=== PATIENT | female | born 1960 | race Caucasian/White ===

== ENCOUNTER 2022-11-20 04:04 | Observation (INO) ==
[2022-11-20 08:56] LABS: ABS Eosinophils 0.2 10^3/uL (0.0-0.5); ABS Lymphocytes 0.7 10^3/uL (1.0-4.8); ABS Monocytes 0.9 10^3/uL (0.0-0.9); ABS Neutrophils 6.3 10^3/uL (1.5-7.6); ABS Nucleated RBC 0.01 10^3/ul; Eosinophil % 2.2 %; Hematocrit 44.7 % (35-45); Hemoglobin 15.5 g/dL (11.5-14.3); Lymphocyte % 8.5 %; Mean Corpuscular Hemoglobin 31.4 pg (27-33); Mean Corpuscular Hgb Conc 34.7 g/dL (31-36); Mean Corpuscular Volume 90.4 fL (80-97); Mean Platelet Volume 7.9 fL (7.5-11.2); Nucleated Red Blood Cells % 0.1 /100 WBC (0.0-0.4); Platelet Count 124 10^3/uL (150-450); Red Blood Count 4.94 10^6/uL (3.63-4.92); Red Cell Distribution Width 16.6 % (12-17); White Blood Count 8.1 10^3/uL (3.8-11.8)
[2022-11-20 09:07] LABS: INR 1.59 (0.88-1.18)
[2022-11-20 09:37] LABS: ALT 36 U/L (7-52); AST 46 U/L (13-39); Albumin 3.1 g/dL (3.2-5.2); Alkaline Phosphatase 136 U/L (35-149); Anion Gap 9 mmol/L (2-16); Blood Urea Nitrogen 23 mg/dL (6-24); C Reactive Protein 10.42 mg/L (<8.01); CO2 Carbon Dioxide 23 mmol/L (22-32); Calcium 9.9 mg/dL (8.6-10.3); Chloride 89 mmol/L (101-111); Creatinine, Serum 0.86 mg/dL (0.51-0.95); Globulin 3.1 g/dL (2-4); Glucose 158 mg/dL (70-100); Lipase 111 U/L (11.0-82.0); Potassium 4.9 mmol/L (3.5-5.0); Sodium 121 mmol/L (135-145); Total Protein 6.2 g/dL (6.4-8.9); eGFR CKD-EPI 76.3 (>60)
[2022-11-20 09:40] LABS: HCG Pregnancy < 0.60 mIU/mL
[2022-11-20 14:53] LABS: LDH 229 U/L (140-271)
[2022-11-20 16:22] LABS: Body Fluid Appearance Clear; Body Fluid Color Yellow; Body Fluid Source Peritonial Fluid
[2022-11-20] MEDS ORDERED: Dextrose 50% Syringe 50 ml 25 GM/50 ML SYRINGE IV PUSH PRN (16:43)
[2022-11-20] MEDS ORDERED: cefTRIAXone 2 gm/50 mL D5W 2 GM/50 ML BAG IV SCH (16:45)
[2022-11-20 17:29] LABS: Osmolality Serum 266 mOsm/kg (275-295)
[2022-11-20 17:31] LABS: Body Fluid Mono 25 %; Body Fluid Other Cells 184; Body Fluid Total Cells Counted 200
[2022-11-20 17:32] LABS: Body Fluid WBC 153 /mcL
[2022-11-20] MEDS: Enoxaparin 40 MG/0.4 ML SYR SUBCUT SCH (20:11)
[2022-11-21 06:43] LABS: ABS Eosinophils 0.3 10^3/uL (0.0-0.5); ABS Lymphocytes 0.7 10^3/uL (1.0-4.8); ABS Monocytes 0.8 10^3/uL (0.0-0.9); ABS Neutrophils 5.1 10^3/uL (1.5-7.6); ABS Nucleated RBC 0.01 10^3/ul; Eosinophil % 3.7 %; Hematocrit 41.7 % (35-45); Hemoglobin 14.6 g/dL (11.5-14.3); Lymphocyte % 10.5 %; Mean Corpuscular Hemoglobin 31.6 pg (27-33); Mean Corpuscular Volume 90.4 fL (80-97); Mean Platelet Volume 8.3 fL (7.5-11.2); Nucleated Red Blood Cells % 0.1 /100 WBC (0.0-0.4); Platelet Count 110 10^3/uL (150-450); Red Blood Count 4.62 10^6/uL (3.63-4.92); Red Cell Distribution Width 16.9 % (12-17); White Blood Count 6.9 10^3/uL (3.8-11.8)
[2022-11-21 06:51] LABS: INR 1.66 (0.88-1.18)
[2022-11-21 07:00] LABS: Albumin 3.1 g/dL (3.2-5.2); Albumin/Globulin Ratio 1.1 (1-3); Calcium 9.5 mg/dL (8.6-10.3); Creatinine, Serum 0.63 mg/dL (0.51-0.95); Globulin 2.8 g/dL (2-4); Potassium 4.8 mmol/L (3.5-5.0); Total Bilirubin 2.5 mg/dL (0.2-1.0); Total Protein 5.9 g/dL (6.4-8.9); eGFR CKD-EPI 100.2 (>60)
[2022-11-21] MEDS: Lactulose 30 ml UDC PO SCH ×3 (09:01→20:22)
[2022-11-21 13:32] LABS: Urine Appearance Cloudy; Urine Bilirubin Negative (Negative); Urine Blood 2+ (Negative); Urine Color Yellow; Urine Glucose 3+(>=500 mg/dL) (Negative); Urine Ketones Negative (Negative); Urine Nitrite Negative (Negative); Urine Protein Negative (Negative); Urine Specific Gravity 1.031 (1.002-1.030); Urine Urobilinogen Negative (Negative)
[2022-11-21 13:40] LABS: Urine Bacteria 1+ (Absent); Urine Red Blood Cell 3+(>10/hpf) (Absent); Urine Squamous Epithelial Cell Present (Absent); Urine White Blood Cell 1+(6-10/hpf) (Absent)
[2022-11-21 13:45] LABS: Urine Osmo 763 mOsm/kg (150-1150)
[2022-11-21 14:39] LABS: Calcium 9.7 mg/dL (8.6-10.3); Creatinine, Serum 0.83 mg/dL (0.51-0.95); Potassium 4.9 mmol/L (3.5-5.0); eGFR CKD-EPI 79.7 (>60)
[2022-11-21] MEDS ORDERED: Albumin Human 25% 12.5 GM/50 ML BTL IV ONE ×2 (15:10→23:31)
[2022-11-21] MEDS ORDERED: Furosemide 40 mg/4 ml IV VIAL IV SLOW PU ONE (15:12)
[2022-11-21] MEDS ORDERED: cefTRIAXone 1 gm/50 mL D5W 1 GM/50 ML BAG IV SCH (17:00)
[2022-11-21] MEDS: Enoxaparin 40 MG/0.4 ML SYR SUBCUT SCH (17:14)
[2022-11-21 21:25] LABS: Calcium 9.4 mg/dL (8.6-10.3); Creatinine, Serum 0.79 mg/dL (0.51-0.95); Potassium 4.8 mmol/L (3.5-5.0); eGFR CKD-EPI 84.5 (>60)
[2022-11-22] MEDS ORDERED: Furosemide 40 mg/4 ml IV VIAL IV ONE ×2 (01:00→16:36)
[2022-11-22 03:05] LABS: INR 1.63 (0.88-1.18)
[2022-11-22 03:06] LABS: Hematocrit 43.7 % (35-45); Hemoglobin 14.9 g/dL (11.5-14.3); Mean Corpuscular Hemoglobin 31.3 pg (27-33); Mean Corpuscular Hgb Conc 34.1 g/dL (31-36); Mean Corpuscular Volume 91.9 fL (80-97); Red Blood Count 4.76 10^6/uL (3.63-4.92); Red Cell Distribution Width 16.8 % (12-17); White Blood Count 6.1 10^3/uL (3.8-11.8)
[2022-11-22 03:44] LABS: Albumin 3.2 g/dL (3.2-5.2); Albumin/Globulin Ratio 1.1 (1-3); Calcium 9.6 mg/dL (8.6-10.3); Creatinine, Serum 0.82 mg/dL (0.51-0.95); Globulin 2.8 g/dL (2-4); Potassium 4.3 mmol/L (3.5-5.0); Total Bilirubin 2.7 mg/dL (0.2-1.0); eGFR CKD-EPI 80.8 (>60)
[2022-11-22 04:36] LABS: ABS Eosinophils 0.2 10^3/uL (0.0-0.5); ABS Lymphocytes 0.9 10^3/uL (1.0-4.8); ABS Monocytes 0.7 10^3/uL (0.0-0.9); ABS Neutrophils 4.3 10^3/uL (1.5-7.6); ABS Nucleated RBC 0.01 10^3/ul; Mean Platelet Volume 7.9 fL (7.5-11.2); Nucleated Red Blood Cells % 0.2 /100 WBC (0.0-0.4); Platelet Count 74 10^3/uL (150-450)
[2022-11-22 07:37] LABS: ABS Eosinophils 0.3 10^3/uL (0.0-0.5); ABS Lymphocytes 0.6 10^3/uL (1.0-4.8); ABS Monocytes 0.8 10^3/uL (0.0-0.9); ABS Neutrophils 4.4 10^3/uL (1.5-7.6); ABS Nucleated RBC 0.02 10^3/ul; Eosinophil % 4.3 %; Hematocrit 41.6 % (35-45); Hemoglobin 14.3 g/dL (11.5-14.3); Lymphocyte % 10.4 %; Mean Corpuscular Hemoglobin 31.3 pg (27-33); Mean Corpuscular Hgb Conc 34.4 g/dL (31-36); Mean Platelet Volume 7.8 fL (7.5-11.2); Nucleated Red Blood Cells % 0.3 /100 WBC (0.0-0.4); Platelet Count 94 10^3/uL (150-450); Red Blood Count 4.57 10^6/uL (3.63-4.92); Red Cell Distribution Width 17.4 % (12-17); White Blood Count 6.2 10^3/uL (3.8-11.8)
[2022-11-22 07:56] LABS: Albumin 3.2 g/dL (3.2-5.2); Albumin/Globulin Ratio 1.2 (1-3); Calcium 9.7 mg/dL (8.6-10.3); Creatinine, Serum 0.79 mg/dL (0.51-0.95); Globulin 2.7 g/dL (2-4); Potassium 4.3 mmol/L (3.5-5.0); Total Protein 5.9 g/dL (6.4-8.9); eGFR CKD-EPI 84.5 (>60)
[2022-11-22] MEDS: Lactulose 30 ml UDC PO SCH ×2 (08:04→14:38)
[2022-11-22 11:42] LABS: Fluid Type, Protein, Total PERITONEAL; Glucose, BF 213 mg/dL; Total Protein, BF 0.3 g/dL
[2022-11-22 12:27] LABS: Albumin, BF 0.3 g/dL; Fluid Type, Albumin PERITONEAL
[2022-11-22 13:37] LABS: Lactate Dehydrogenase, BF 19 U/L
[2022-11-22 16:16] LABS: Calcium 9.9 mg/dL (8.6-10.3); Creatinine, Serum 0.86 mg/dL (0.51-0.95); Potassium 4.4 mmol/L (3.5-5.0); eGFR CKD-EPI 76.3 (>60)
[2022-11-22 17:13] VITALS: BP 112/73
== END 2022-11-22 18:10 | disposition home or self-care (01) ==
LOC: EDHOLD 04:04 → ED 04:04 → SUATTDRO 14:13 → EDHOLD 17:06 → MED 18:18
PROVIDERS: ADMIT Internal Medicine; ATTEND Internal Medicine

== ENCOUNTER 2022-12-08 15:54 | Inpatient (IN) ==
[2022-12-08 20:30] LABS: ABS Eosinophils 0.3 10^3/uL (0.0-0.5); ABS Lymphocytes 0.7 10^3/uL (1.0-4.8); ABS Monocytes 1.1 10^3/uL (0.0-0.9); ABS Neutrophils 5.4 10^3/uL (1.5-7.6); ABS Nucleated RBC 0.01 10^3/ul; Eosinophil % 3.6 %; Hemoglobin 14.6 g/dL (11.5-14.3); Lymphocyte % 8.9 %; Mean Corpuscular Hemoglobin 32.7 pg (27-33); Mean Corpuscular Hgb Conc 34.7 g/dL (31-36); Mean Corpuscular Volume 94.3 fL (80-97); Mean Platelet Volume 9.3 fL (7.5-11.2); Nucleated Red Blood Cells % 0.2 /100 WBC (0.0-0.4); Platelet Count 79 10^3/uL (150-450); Red Blood Count 4.46 10^6/uL (3.63-4.92); Red Cell Distribution Width 21.4 % (12-17); White Blood Count 7.5 10^3/uL (3.8-11.8)
[2022-12-08 20:47] LABS: Urine Appearance Cloudy; Urine Bilirubin Negative (Negative); Urine Blood 3+ (Negative); Urine Color Yellow; Urine Glucose 3+(>=500 mg/dL) (Negative); Urine Ketones Negative (Negative); Urine Nitrite Negative (Negative); Urine Protein Negative (Negative); Urine Specific Gravity 1.024 (1.002-1.030); Urine Urobilinogen Negative (Negative)
[2022-12-08 20:58] LABS: ALT 49 U/L (7-52); Albumin 3.9 g/dL (3.2-5.2); Albumin/Globulin Ratio 1.5 (1-3); Alkaline Phosphatase 122 U/L (35-149); Anion Gap 5 mmol/L (2-16); Blood Urea Nitrogen 31 mg/dL (6-24); CO2 Carbon Dioxide 27 mmol/L (22-32); Calcium 10.2 mg/dL (8.6-10.3); Chloride 85 mmol/L (101-111); Creatinine, Serum 0.87 mg/dL (0.51-0.95); Globulin 2.6 g/dL (2-4); Glucose 176 mg/dL (70-100); Sodium 117 mmol/L (135-145); Total Protein 6.5 g/dL (6.4-8.9); eGFR CKD-EPI 75.3 (>60)
[2022-12-08 21:03] LABS: Urine Bacteria 1+ (Absent); Urine Red Blood Cell 3+(>10/hpf) (Absent); Urine Squamous Epithelial Cell Present (Absent); Urine White Blood Cell Trace(0-5/hpf) (Absent)
[2022-12-08 21:12] LABS: Urine Osmo 582 mOsm/kg (150-1150)
[2022-12-08 21:39] LABS: Potassium Redraw 4.6 mmol/L (3.5-5.0)
[2022-12-08] MEDS: Enoxaparin 40 MG/0.4 ML SYR SUBCUT SCH (23:29)
[2022-12-08] MEDS ORDERED: Dextrose 50% Syringe 50 ml 25 GM/50 ML SYRINGE IV PUSH PRN (23:41)
[2022-12-09 02:00] LABS: Calcium 10.1 mg/dL (8.6-10.3); Creatinine, Serum 0.91 mg/dL (0.51-0.95); Potassium 4.4 mmol/L (3.5-5.0); eGFR CKD-EPI 71.3 (>60)
[2022-12-09 07:44] LABS: INR 1.9 (0.88-1.18)
[2022-12-09 07:54] LABS: ABS Basophils 0.1 10^3/uL (0.0-0.1); ABS Eosinophils 0.3 10^3/uL (0.0-0.5); ABS Lymphocytes 0.9 10^3/uL (1.0-4.8); ABS Neutrophils 4.1 10^3/uL (1.5-7.6); ABS Nucleated RBC 0.01 10^3/ul; Eosinophil % 4.4 %; Hematocrit 39.2 % (35-45); Hemoglobin 13.5 g/dL (11.5-14.3); Lymphocyte % 13.8 %; Mean Corpuscular Hgb Conc 34.4 g/dL (31-36); Mean Corpuscular Volume 95.7 fL (80-97); Mean Platelet Volume 9.7 fL (7.5-11.2); Nucleated Red Blood Cells % 0.1 /100 WBC (0.0-0.4); Platelet Count 68 10^3/uL (150-450); Red Cell Distribution Width 21.2 % (12-17); White Blood Count 6.3 10^3/uL (3.8-11.8)
[2022-12-09 07:55] LABS: Albumin 3.1 g/dL (3.2-5.2); Albumin/Globulin Ratio 1.4 (1-3); Calcium 9.9 mg/dL (8.6-10.3); Creatinine, Serum 0.79 mg/dL (0.51-0.95); Globulin 2.2 g/dL (2-4); Magnesium 1.8 mg/dL (1.9-2.7); Potassium 4.8 mmol/L (3.5-5.0); Total Bilirubin 4.2 mg/dL (0.2-1.0); Total Protein 5.3 g/dL (6.4-8.9); eGFR CKD-EPI 84.5 (>60)
[2022-12-09] MEDS ORDERED: Magnesium Sulfate 2 gm BAG 2 GM/50 ML BAG IVPB ONE (09:23)
[2022-12-09] MEDS: Empagliflozin 25 MG TAB PO SCH (10:17)
[2022-12-09] MEDS: Lactulose 30 ml UDC PO SCH (10:34)
[2022-12-09] MEDS ORDERED: Lactated Ringers 1000 ml BAG 500 ML IV ONE (13:10)
[2022-12-09 14:03] LABS: Calcium 9.5 mg/dL (8.6-10.3); Creatinine, Serum 0.9 mg/dL (0.51-0.95); eGFR CKD-EPI 72.3 (>60)
[2022-12-09] MEDS: Cholecalciferol (VIT D3) 1,000 unit TAB PO SCH (16:51)
[2022-12-09 19:33] LABS: Calcium 9.2 mg/dL (8.6-10.3); Creatinine, Serum 0.89 mg/dL (0.51-0.95); Potassium 5.3 mmol/L (3.5-5.0); eGFR CKD-EPI 73.3 (>60)
[2022-12-09] MEDS ORDERED: Albumin Human 25% 25 GM/100 ML BTL IV ONE (20:30)
[2022-12-09] MEDS: Enoxaparin 40 MG/0.4 ML SYR SUBCUT SCH (20:36)
[2022-12-10 05:59] LABS: INR 1.79 (0.88-1.18)
[2022-12-10 06:13] LABS: Albumin 3.5 g/dL (3.2-5.2); Albumin/Globulin Ratio 1.5 (1-3); Calcium 9.6 mg/dL (8.6-10.3); Creatinine, Serum 0.79 mg/dL (0.51-0.95); Globulin 2.3 g/dL (2-4); Magnesium 2.2 mg/dL (1.9-2.7); Potassium 4.8 mmol/L (3.5-5.0); Total Bilirubin 3.6 mg/dL (0.2-1.0); Total Protein 5.8 g/dL (6.4-8.9); eGFR CKD-EPI 84.5 (>60)
[2022-12-10 08:28] LABS: Osmolality Serum 271 mOsm/kg (275-295)
[2022-12-10] MEDS ORDERED: SODIUM ZIRCONIUM CYCLOSILICATE 10 GM PACKET PO SCH (09:00)
[2022-12-10] MEDS: Empagliflozin 25 MG TAB PO SCH (09:52)
[2022-12-10] MEDS: Lactulose 30 ml UDC PO SCH (09:53)
[2022-12-10] MEDS ORDERED: cefTRIAXone 1 gm/50 mL D5W 1 GM/50 ML BAG IV SCH (11:30)
[2022-12-10] MEDS ORDERED: Albumin Human 25% 25 GM/100 ML BTL IV ONE (12:00)
[2022-12-10] MEDS: Enoxaparin 40 MG/0.4 ML SYR SUBCUT SCH (21:18)
[2022-12-10] MEDS: Cholecalciferol (VIT D3) 1,000 unit TAB PO SCH (22:49)
[2022-12-10] MEDS ORDERED: Cholecalciferol (VIT D3) 1,000 unit TAB PO SCH (23:00)
[2022-12-11] MEDS: CHOLECALCIFEROL 10000 UNIT PO SCH ×2 (00:05→18:37)
[2022-12-11 06:16] LABS: ABS Eosinophils 0.1 10^3/uL (0.0-0.5); ABS Lymphocytes 0.6 10^3/uL (1.0-4.8); ABS Monocytes 0.7 10^3/uL (0.0-0.9); ABS Neutrophils 2.1 10^3/uL (1.5-7.6); ABS Nucleated RBC 0.01 10^3/ul; Eosinophil % 3.9 %; Hematocrit 36.9 % (35-45); Hemoglobin 12.7 g/dL (11.5-14.3); Lymphocyte % 16.6 %; Mean Corpuscular Hemoglobin 32.9 pg (27-33); Mean Corpuscular Hgb Conc 34.3 g/dL (31-36); Mean Corpuscular Volume 95.9 fL (80-97); Mean Platelet Volume 9.7 fL (7.5-11.2); Nucleated Red Blood Cells % 0.1 /100 WBC (0.0-0.4); Platelet Count 52 10^3/uL (150-450); Red Blood Count 3.85 10^6/uL (3.63-4.92); Red Cell Distribution Width 21.1 % (12-17); White Blood Count 3.5 10^3/uL (3.8-11.8)
[2022-12-11 06:21] LABS: INR 1.86 (0.88-1.18)
[2022-12-11 06:32] LABS: Albumin 3.4 g/dL (3.2-5.2); Albumin/Globulin Ratio 1.7 (1-3); Calcium 9.5 mg/dL (8.6-10.3); Creatinine, Serum 0.91 mg/dL (0.51-0.95); Potassium 4.9 mmol/L (3.5-5.0); Total Bilirubin 4.1 mg/dL (0.2-1.0); Total Protein 5.4 g/dL (6.4-8.9); eGFR CKD-EPI 71.3 (>60)
[2022-12-11] MEDS: cefTRIAXone 1 gm/50 mL D5W 1 GM/50 ML BAG IV SCH (09:44)
[2022-12-11] MEDS: Empagliflozin 25 MG TAB PO SCH (09:50)
[2022-12-11] MEDS: Lactulose 30 ml UDC PO SCH (09:59)
[2022-12-11] MEDS ORDERED: Albumin Human 25% 25 GM/100 ML BTL IV ONE (17:42)
[2022-12-11 19:43] LABS: Calcium 9.4 mg/dL (8.6-10.3); Creatinine, Serum 0.93 mg/dL (0.51-0.95); Potassium 4.2 mmol/L (3.5-5.0); eGFR CKD-EPI 69.5 (>60)
[2022-12-12 06:30] LABS: ABS Eosinophils 0.1 10^3/uL (0.0-0.5); ABS Lymphocytes 0.4 10^3/uL (1.0-4.8); ABS Monocytes 0.7 10^3/uL (0.0-0.9); ABS Neutrophils 2.5 10^3/uL (1.5-7.6); ABS Nucleated RBC 0.01 10^3/ul; Eosinophil % 3.3 %; Hematocrit 40.7 % (35-45); Hemoglobin 14.1 g/dL (11.5-14.3); INR 1.69 (0.88-1.18); Lymphocyte % 11.4 %; Mean Corpuscular Hemoglobin 33.5 pg (27-33); Mean Corpuscular Hgb Conc 34.6 g/dL (31-36); Mean Corpuscular Volume 96.6 fL (80-97); Mean Platelet Volume 9.7 fL (7.5-11.2); Nucleated Red Blood Cells % 0.2 /100 WBC (0.0-0.4); Platelet Count 56 10^3/uL (150-450); Red Blood Count 4.21 10^6/uL (3.63-4.92); Red Cell Distribution Width 21.7 % (12-17); White Blood Count 3.8 10^3/uL (3.8-11.8)
[2022-12-12 06:44] LABS: Albumin/Globulin Ratio 1.7 (1-3); Calcium 10.2 mg/dL (8.6-10.3); Creatinine, Serum 0.86 mg/dL (0.51-0.95); Globulin 2.4 g/dL (2-4); Magnesium 2.1 mg/dL (1.9-2.7); Potassium 4.5 mmol/L (3.5-5.0); Total Protein 6.4 g/dL (6.4-8.9); eGFR CKD-EPI 76.3 (>60)
[2022-12-12] MEDS: Lactulose 30 ml UDC PO SCH ×2 (08:46→08:50)
[2022-12-12] MEDS: Empagliflozin 25 MG TAB PO SCH (08:47)
[2022-12-12] MEDS: cefTRIAXone 1 gm/50 mL D5W 1 GM/50 ML BAG IV SCH (08:47)
[2022-12-12] MEDS ORDERED: Nystatin TOP POWDER 15 GM BTL TOPICAL SCH (09:00)
[2022-12-12 11:10] VITALS: BP 94/48
== END 2022-12-12 13:33 | disposition home or self-care (01) ==
LOC: EDHOLD 15:54 → ED 15:54 → SUATTDRO 22:39 → MEDTELE 12-09 00:07 → SUATTDRO 12-10 10:00
PROVIDERS: ADMIT Hospitalist; ATTEND Internal Medicine

== ENCOUNTER 2022-12-21 18:49 | Inpatient (IN) ==
[2022-12-21] MEDS ORDERED: Morphine 4 MG/ML VIAL (1 ml) IV PRN (19:19)
[2022-12-21] MEDS ORDERED: Morphine 4 MG/ML VIAL (1 ml) IV ONE (19:19)
[2022-12-21 20:30] LABS: ALT 47 U/L (7-52); Albumin 3.4 g/dL (3.2-5.2); Albumin/Globulin Ratio 1.3 (1-3); Alkaline Phosphatase 193 U/L (35-149); Blood Urea Nitrogen 33 mg/dL (6-24); C Reactive Protein 10.41 mg/L (<8.01); CO2 Carbon Dioxide 22 mmol/L (22-32); Chloride 91 mmol/L (101-111); Globulin 2.7 g/dL (2-4); Glucose 180 mg/dL (70-100); Lipase 112 U/L (11.0-82.0); Sodium 121 mmol/L (135-145); Total Protein 6.1 g/dL (6.4-8.9); eGFR CKD-EPI 83.3 (>60)
[2022-12-21 20:34] LABS: Anion Gap 8 mmol/L (2-16)
[2022-12-21] MEDS ORDERED: Iodixanol (CONTRAST) 320 MG/ML 100 ML SDV IV ONE (20:45)
[2022-12-21 21:25] LABS: ABS Basophils 0.1 10^3/uL (0.0-0.1); ABS Eosinophils 0.2 10^3/uL (0.0-0.5); ABS Lymphocytes 0.5 10^3/uL (1.0-4.8); ABS Monocytes 0.9 10^3/uL (0.0-0.9); ABS Neutrophils 5.1 10^3/uL (1.5-7.6); Eosinophil % 3.3 %; Hematocrit 41.5 % (35-45); Hemoglobin 14.4 g/dL (11.5-14.3); Lymphocyte % 7.7 %; Mean Corpuscular Hemoglobin 33.5 pg (27-33); Mean Corpuscular Hgb Conc 34.8 g/dL (31-36); Mean Corpuscular Volume 96.4 fL (80-97); Mean Platelet Volume 8.9 fL (7.5-11.2); Platelet Count 89 10^3/uL (150-450); Red Cell Distribution Width 21.2 % (12-17); White Blood Count 6.8 10^3/uL (3.8-11.8)
[2022-12-21 21:28] LABS: Potassium Redraw 5.1 mmol/L (3.5-5.0)
[2022-12-22 01:02] LABS: Urine Appearance Cloudy; Urine Bilirubin Negative (Negative); Urine Blood Negative (Negative); Urine Color Yellow; Urine Glucose 3+(>=500 mg/dL) (Negative); Urine Ketones Negative (Negative); Urine Nitrite Negative (Negative); Urine Protein Negative (Negative); Urine Specific Gravity 1.053 (1.002-1.030); Urine Urobilinogen Negative (Negative)
[2022-12-22] MEDS ORDERED: Ondansetron 4 mg VIAL 2 MG/ML 2 ml VIAL IV PRN (01:19)
[2022-12-22] MEDS ORDERED: Dextrose 50% Syringe 50 ml 25 GM/50 ML SYRINGE IV PUSH PRN (01:23)
[2022-12-22] MEDS ORDERED: LACTULOSE PO SCH (01:30)
[2022-12-22] MEDS: Lactulose 30 ml UDC PO SCH ×5 (03:47→21:13)
[2022-12-22] MEDS: Morphine 4 MG/ML VIAL (1 ml) IV PRN ×2 (06:41→11:41)
[2022-12-22 07:12] LABS: INR 1.79 (0.88-1.18)
[2022-12-22 07:47] LABS: ALT 45 U/L (7-52); Albumin 3.1 g/dL (3.2-5.2); Albumin/Globulin Ratio 1.2 (1-3); Alkaline Phosphatase 178 U/L (35-149); Blood Urea Nitrogen 34 mg/dL (6-24); CO2 Carbon Dioxide 20 mmol/L (22-32); Calcium 9.7 mg/dL (8.6-10.3); Chloride 89 mmol/L (101-111); Creatinine, Serum 0.77 mg/dL (0.51-0.95); Globulin 2.5 g/dL (2-4); Glucose 263 mg/dL (70-100); Total Protein 5.6 g/dL (6.4-8.9); eGFR CKD-EPI 87.2 (>60)
[2022-12-22 08:00] LABS: Anion Gap 8 mmol/L (2-16); Sodium 117 mmol/L (135-145)
[2022-12-22 08:32] LABS: ABS Basophils 0.1 10^3/uL (0.0-0.1); ABS Eosinophils 0.2 10^3/uL (0.0-0.5); ABS Lymphocytes 0.5 10^3/uL (1.0-4.8); ABS Monocytes 0.9 10^3/uL (0.0-0.9); ABS Neutrophils 4.6 10^3/uL (1.5-7.6); Eosinophil % 3.4 %; Hematocrit 39.3 % (35-45); Hemoglobin 13.6 g/dL (11.5-14.3); Lymphocyte % 8.3 %; Mean Corpuscular Hemoglobin 33.6 pg (27-33); Mean Corpuscular Hgb Conc 34.6 g/dL (31-36); Mean Corpuscular Volume 96.9 fL (80-97); Mean Platelet Volume 8.7 fL (7.5-11.2); Nucleated Red Blood Cells % 0.1 /100 WBC (0.0-0.4); Platelet Count 80 10^3/uL (150-450); Red Blood Count 4.05 10^6/uL (3.63-4.92); Red Cell Distribution Width 21.3 % (12-17); White Blood Count 6.4 10^3/uL (3.8-11.8)
[2022-12-22 08:47] LABS: Potassium Redraw 5.4 mmol/L (3.5-5.0)
[2022-12-22] MEDS ORDERED: Morphine 2 MG/ML SYRINGE IV ONE (09:53)
[2022-12-22] MEDS: Enoxaparin 40 MG/0.4 ML SYR SUBCUT SCH (10:23)
[2022-12-22] MEDS ORDERED: Senna TAB 8.6 mg TAB PO PRN (15:59)
[2022-12-22] MEDS ORDERED: Polyethylene Glycol 3350 17 GM PACKET PO PRN (15:59)
[2022-12-22] MEDS ORDERED: Albumin Human 25% 12.5 GM/50 ML BTL IV ONE (18:23)
[2022-12-22] MEDS: Cholecalciferol (VIT D3) 1,000 unit TAB PO SCH (18:38)
[2022-12-22] MEDS ORDERED: Magnesium Hydroxide LIQ 30 ML UDC PO SCH (21:00)
[2022-12-22 21:21] LABS: Body Fluid WBC 50 /mcL
[2022-12-22 21:23] LABS: Body Fluid Appearance Clear; Body Fluid Source Peritonial Fluid
[2022-12-22 21:24] LABS: Body Fluid Color Colorless
[2022-12-22 21:45] LABS: Calcium 10.3 mg/dL (8.6-10.3); Potassium 5.2 mmol/L (3.5-5.0)
[2022-12-22 21:51] LABS: Creatinine, Serum 0.87 mg/dL (0.51-0.95); eGFR CKD-EPI 75.3 (>60)
[2022-12-22 22:00] LABS: Body Fluid Mono 36 %; Body Fluid Other Cells 6; Body Fluid Total Cells Counted 200
[2022-12-23] MEDS ORDERED: Magnesium Hydroxide LIQ 30 ML UDC PO PRN (07:17)
[2022-12-23 07:31] LABS: INR 1.64 (0.88-1.18)
[2022-12-23 07:35] LABS: ABS Basophils 0.1 10^3/uL (0.0-0.1); ABS Eosinophils 0.2 10^3/uL (0.0-0.5); ABS Lymphocytes 0.5 10^3/uL (1.0-4.8); ABS Monocytes 0.8 10^3/uL (0.0-0.9); ABS Neutrophils 4.1 10^3/uL (1.5-7.6); Eosinophil % 2.8 %; Hematocrit 39.2 % (35-45); Hemoglobin 13.7 g/dL (11.5-14.3); Lymphocyte % 9.2 %; Mean Corpuscular Hemoglobin 33.8 pg (27-33); Mean Corpuscular Hgb Conc 34.9 g/dL (31-36); Mean Platelet Volume 9.2 fL (7.5-11.2); Nucleated Red Blood Cells % 0.1 /100 WBC (0.0-0.4); Platelet Count 80 10^3/uL (150-450); Red Blood Count 4.04 10^6/uL (3.63-4.92); Red Cell Distribution Width 21.5 % (12-17); White Blood Count 5.7 10^3/uL (3.8-11.8)
[2022-12-23 07:36] LABS: Albumin 3.3 g/dL (3.2-5.2); Albumin/Globulin Ratio 1.3 (1-3); Creatinine, Serum 0.88 mg/dL (0.51-0.95); Globulin 2.6 g/dL (2-4); Magnesium 2.4 mg/dL (1.9-2.7); Potassium 5.3 mmol/L (3.5-5.0); Total Bilirubin 3.8 mg/dL (0.2-1.0); Total Protein 5.9 g/dL (6.4-8.9); eGFR CKD-EPI 74.3 (>60)
[2022-12-23] MEDS: Morphine 4 MG/ML VIAL (1 ml) IV PRN (09:27)
[2022-12-23] MEDS: Enoxaparin 40 MG/0.4 ML SYR SUBCUT SCH (09:36)
[2022-12-23] MEDS: Lactulose 30 ml UDC PO SCH ×3 (09:43→22:46)
[2022-12-23 13:43] LABS: Calcium 10.2 mg/dL (8.6-10.3); Creatinine, Serum 0.9 mg/dL (0.51-0.95); Potassium 5.3 mmol/L (3.5-5.0); eGFR CKD-EPI 72.3 (>60)
[2022-12-23] MEDS: Cholecalciferol (VIT D3) 1,000 unit TAB PO SCH (17:15)
[2022-12-24 06:50] LABS: ABS Basophils 0.1 10^3/uL (0.0-0.1); ABS Eosinophils 0.2 10^3/uL (0.0-0.5); ABS Lymphocytes 0.5 10^3/uL (1.0-4.8); ABS Monocytes 0.8 10^3/uL (0.0-0.9); ABS Neutrophils 3.1 10^3/uL (1.5-7.6); Eosinophil % 4.6 %; Hematocrit 37.1 % (35-45); Hemoglobin 12.9 g/dL (11.5-14.3); Lymphocyte % 11.5 %; Mean Corpuscular Hemoglobin 33.3 pg (27-33); Mean Corpuscular Hgb Conc 34.8 g/dL (31-36); Mean Corpuscular Volume 95.5 fL (80-97); Mean Platelet Volume 9.1 fL (7.5-11.2); Platelet Count 64 10^3/uL (150-450); Red Blood Count 3.88 10^6/uL (3.63-4.92); Red Cell Distribution Width 20.8 % (12-17); White Blood Count 4.6 10^3/uL (3.8-11.8)
[2022-12-24 07:06] LABS: Calcium 9.7 mg/dL (8.6-10.3); Creatinine, Serum 0.82 mg/dL (0.51-0.95); Magnesium 2.2 mg/dL (1.9-2.7); Potassium 5.7 mmol/L (3.5-5.0); eGFR CKD-EPI 80.8 (>60)
[2022-12-24] MEDS: Lactulose 30 ml UDC PO SCH ×3 (08:30→20:27)
[2022-12-24] MEDS: Enoxaparin 40 MG/0.4 ML SYR SUBCUT SCH (08:30)
[2022-12-24] MEDS ORDERED: ORALSYR PO SCH (09:00)
[2022-12-24] MEDS ORDERED: FUROSEMIDE PO SCH (09:00)
[2022-12-24] MEDS: Cholecalciferol (VIT D3) 1,000 unit TAB PO SCH (16:24)
[2022-12-25 06:59] LABS: ABS Basophils 0.1 10^3/uL (0.0-0.1); ABS Eosinophils 0.2 10^3/uL (0.0-0.5); ABS Lymphocytes 0.6 10^3/uL (1.0-4.8); ABS Neutrophils 4.3 10^3/uL (1.5-7.6); ABS Nucleated RBC 0.01 10^3/ul; Eosinophil % 3.5 %; Hematocrit 38.1 % (35-45); Hemoglobin 13.4 g/dL (11.5-14.3); Lymphocyte % 10.4 %; Mean Corpuscular Hemoglobin 33.8 pg (27-33); Mean Corpuscular Volume 96.5 fL (80-97); Nucleated Red Blood Cells % 0.1 /100 WBC (0.0-0.4); Platelet Count 77 10^3/uL (150-450); Red Blood Count 3.95 10^6/uL (3.63-4.92); Red Cell Distribution Width 20.5 % (12-17); White Blood Count 6.2 10^3/uL (3.8-11.8)
[2022-12-25 07:07] LABS: Albumin/Globulin Ratio 1.2 (1-3); Calcium 9.6 mg/dL (8.6-10.3); Creatinine, Serum 1.28 mg/dL (0.51-0.95); Globulin 2.5 g/dL (2-4); Total Bilirubin 2.9 mg/dL (0.2-1.0); Total Protein 5.5 g/dL (6.4-8.9); eGFR CKD-EPI 47.4 (>60)
[2022-12-25 07:09] LABS: INR 1.82 (0.88-1.18)
[2022-12-25 07:19] LABS: Potassium 6.7 mmol/L (3.5-5.0)
[2022-12-25] MEDS ORDERED: Dextrose 50% Syringe 50 ml 25 GM/50 ML SYRINGE IV PUSH ONE (07:28)
[2022-12-25] MEDS ORDERED: Calcium Gluconate 1 GM/10 ML VIAL (in Pyxis) IV PUSH ONE (07:51)
[2022-12-25] MEDS: Enoxaparin 40 MG/0.4 ML SYR SUBCUT SCH (08:38)
[2022-12-25] MEDS: Lactulose 30 ml UDC PO SCH ×3 (08:51→21:15)
[2022-12-25] MEDS ORDERED: Sodium Polystyrene ORAL.SUSP 15 GM/60 ML BTL PO ONE (10:13)
[2022-12-25] MEDS ORDERED: NS 0.9% 500 ml BAG 500 ML IV ONE ×2 (12:20→17:07)
[2022-12-25] MEDS: Cholecalciferol (VIT D3) 1,000 unit TAB PO SCH (16:10)
[2022-12-25 16:14] LABS: Calcium 10.8 mg/dL (8.6-10.3); Creatinine, Serum 1.27 mg/dL (0.51-0.95); Potassium 4.9 mmol/L (3.5-5.0); eGFR CKD-EPI 47.8 (>60)
[2022-12-26 07:33] LABS: ABS Eosinophils 0.3 10^3/uL (0.0-0.5); ABS Lymphocytes 0.7 10^3/uL (1.0-4.8); ABS Monocytes 0.8 10^3/uL (0.0-0.9); ABS Neutrophils 3.8 10^3/uL (1.5-7.6); ABS Nucleated RBC 0.01 10^3/ul; Eosinophil % 4.8 %; Hematocrit 40.1 % (35-45); Hemoglobin 13.7 g/dL (11.5-14.3); Lymphocyte % 12.6 %; Mean Corpuscular Hemoglobin 33.3 pg (27-33); Mean Corpuscular Hgb Conc 34.2 g/dL (31-36); Mean Corpuscular Volume 97.4 fL (80-97); Mean Platelet Volume 9.2 fL (7.5-11.2); Nucleated Red Blood Cells % 0.1 /100 WBC (0.0-0.4); Platelet Count 78 10^3/uL (150-450); Red Blood Count 4.12 10^6/uL (3.63-4.92); Red Cell Distribution Width 21.3 % (12-17); White Blood Count 5.6 10^3/uL (3.8-11.8)
[2022-12-26 07:35] LABS: Albumin 3.1 g/dL (3.2-5.2); Calcium 9.9 mg/dL (8.6-10.3); Creatinine, Serum 1.18 mg/dL (0.51-0.95); Potassium 3.6 mmol/L (3.5-5.0); Total Protein 5.7 g/dL (6.4-8.9); eGFR CKD-EPI 52.2 (>60)
[2022-12-26 07:36] LABS: Albumin/Globulin Ratio 1.2 (1-3); Globulin 2.6 g/dL (2-4); Total Bilirubin 3.4 mg/dL (0.2-1.0)
[2022-12-26] MEDS: Lactulose 30 ml UDC PO SCH ×2 (09:31→13:16)
[2022-12-26] MEDS: Enoxaparin 40 MG/0.4 ML SYR SUBCUT SCH (09:31)
[2022-12-26] MEDS ORDERED: Albumin Human 5% 12.5 GM/250 ML BTL IV ONE (10:45)
[2022-12-26 12:07] LABS: INR 1.82 (0.88-1.18)
[2022-12-26 16:32] VITALS: BP 114/64
[2022-12-26] MEDS: Cholecalciferol (VIT D3) 1,000 unit TAB PO SCH (18:21)
== END 2022-12-26 18:42 | disposition home or self-care (01) ==
LOC: ED 18:49 → EDHOLD 18:49 → SUATTDRO 12-22 01:06 → MEDTELE 12-22 08:23 → SUATTDRO 12-22 13:23
PROVIDERS: ADMIT Internal Medicine; ATTEND Internal Medicine

== ENCOUNTER 2023-01-11 12:36 | Observation (INO) ==
[2023-01-11 14:30] LABS: Hematocrit 34.7 % (35-45); Hemoglobin 11.9 g/dL (11.5-14.3); Mean Corpuscular Hemoglobin 33.8 pg (27-33); Mean Corpuscular Hgb Conc 34.3 g/dL (31-36); Mean Corpuscular Volume 98.6 fL (80-97); Mean Platelet Volume 9.6 fL (7.5-11.2); Platelet Count 74 10^3/uL (150-450); Red Blood Count 3.52 10^6/uL (3.63-4.92); Red Cell Distribution Width 18.2 % (12-17); White Blood Count 5.2 10^3/uL (3.8-11.8)
[2023-01-11 15:12] LABS: Albumin 3.2 g/dL (3.2-5.2); Albumin/Globulin Ratio 1.4 (1-3); Calcium 9.2 mg/dL (8.6-10.3); Creatinine, Serum 1.25 mg/dL (0.51-0.95); Globulin 2.3 g/dL (2-4); Total Bilirubin 2.3 mg/dL (0.2-1.0); Total Protein 5.5 g/dL (6.4-8.9); eGFR CKD-EPI 48.7 (>60)
[2023-01-11] MEDS ORDERED: Dextrose 50% Syringe 50 ml 25 GM/50 ML SYRINGE IV PUSH PRN (15:25)
[2023-01-11] MEDS ORDERED: Albumin Human 25% 25 GM/100 ML BTL IV ONE (16:00)
[2023-01-11] MEDS: Enoxaparin 40 MG/0.4 ML SYR SUBCUT SCH (16:24)
[2023-01-11 16:51] LABS: INR 1.81 (0.88-1.18)
[2023-01-11 17:18] LABS: Osmolality Serum 287 mOsm/kg (275-295)
[2023-01-11 20:38] LABS: Calcium 8.9 mg/dL (8.6-10.3); Creatinine, Serum 1.37 mg/dL (0.51-0.95); Potassium 5.2 mmol/L (3.5-5.0); eGFR CKD-EPI 43.7 (>60)
[2023-01-11] MEDS ORDERED: Insulin GLARGINE 100 un/ml 10 ml VIAL SUBCUT SCH (21:00)
[2023-01-11] MEDS: Lactulose 30 ml UDC PO SCH (22:07)
[2023-01-12 06:04] LABS: Urine Osmo 435 mOsm/kg (150-1150)
[2023-01-12 06:04] LABS: ABS Eosinophils 0.2 10^3/uL (0.0-0.5); ABS Lymphocytes 0.4 10^3/uL (1.0-4.8); ABS Monocytes 0.6 10^3/uL (0.0-0.9); ABS Neutrophils 2.3 10^3/uL (1.5-7.6); Eosinophil % 4.8 %; Hematocrit 30.9 % (35-45); Hemoglobin 10.7 g/dL (11.5-14.3); Lymphocyte % 11.5 %; Mean Corpuscular Hemoglobin 33.5 pg (27-33); Mean Corpuscular Hgb Conc 34.7 g/dL (31-36); Mean Corpuscular Volume 96.6 fL (80-97); Mean Platelet Volume 9.4 fL (7.5-11.2); Nucleated Red Blood Cells % 0.1 /100 WBC (0.0-0.4); Platelet Count 47 10^3/uL (150-450); Red Blood Count 3.19 10^6/uL (3.63-4.92); Red Cell Distribution Width 17.8 % (12-17); White Blood Count 3.5 10^3/uL (3.8-11.8)
[2023-01-12 06:32] LABS: Albumin 3.3 g/dL (3.2-5.2); Albumin/Globulin Ratio 1.5 (1-3); Calcium 9.1 mg/dL (8.6-10.3); Creatinine, Serum 1.24 mg/dL (0.51-0.95); Globulin 2.2 g/dL (2-4); Magnesium 1.8 mg/dL (1.9-2.7); Potassium 4.7 mmol/L (3.5-5.0); Total Bilirubin 1.9 mg/dL (0.2-1.0); Total Protein 5.5 g/dL (6.4-8.9); eGFR CKD-EPI 49.2 (>60)
[2023-01-12] MEDS ORDERED: Magnesium Sulfate 2 gm BAG 2 GM/50 ML BAG IVPB ONE (07:13)
[2023-01-12 08:29] LABS: INR 1.78 (0.88-1.18)
[2023-01-12] MEDS: Lactulose 30 ml UDC PO SCH ×3 (08:38→14:28)
[2023-01-12] MEDS ORDERED: Empagliflozin 25 MG TAB PO SCH (09:00)
[2023-01-12] MEDS ORDERED: NS 0.9% 500 ml BAG 500 ML IV ONE (11:32)
[2023-01-12 14:10] VITALS: BP 92/53
[2023-01-12] MEDS: Enoxaparin 40 MG/0.4 ML SYR SUBCUT SCH (14:28)
[2023-01-12 14:36] LABS: Creatinine, Serum 1.12 mg/dL (0.51-0.95); Potassium 4.7 mmol/L (3.5-5.0); eGFR CKD-EPI 55.6 (>60)
== END 2023-01-12 16:42 | disposition home or self-care (01) ==
LOC: ED 12:36 → EDHOLD 12:36 → SSU 16:43
PROVIDERS: ADMIT Internal Medicine; ATTEND Internal Medicine

== ENCOUNTER 2023-01-21 07:19 | Inpatient (IN) ==
[2023-01-21 10:09] LABS: Albumin 3.2 g/dL (3.2-5.2); Calcium 9.2 mg/dL (8.6-10.3); Total Bilirubin 2.4 mg/dL (0.2-1.0)
[2023-01-21 10:13] LABS: ABS Eosinophils 0.2 10^3/uL (0.0-0.5); ABS Lymphocytes 0.4 10^3/uL (1.0-4.8); ABS Monocytes 0.7 10^3/uL (0.0-0.9); ABS Neutrophils 3.2 10^3/uL (1.5-7.6); Eosinophil % 3.7 %; Hematocrit 33.3 % (35-45); Hemoglobin 11.7 g/dL (11.5-14.3); Lymphocyte % 9.7 %; Mean Corpuscular Hemoglobin 34.4 pg (27-33); Mean Corpuscular Hgb Conc 35.1 g/dL (31-36); Mean Corpuscular Volume 97.8 fL (80-97); Mean Platelet Volume 9.1 fL (7.5-11.2); Nucleated Red Blood Cells % 0.1 /100 WBC (0.0-0.4); Platelet Count 70 10^3/uL (150-450); Red Cell Distribution Width 16.4 % (12-17); White Blood Count 4.6 10^3/uL (3.8-11.8)
[2023-01-21 10:15] LABS: Albumin/Globulin Ratio 1.3 (1-3); Creatinine, Serum 1.23 mg/dL (0.51-0.95); Globulin 2.5 g/dL (2-4); INR 1.69 (0.88-1.18); Total Protein 5.7 g/dL (6.4-8.9); eGFR CKD-EPI 49.7 (>60)
[2023-01-21 10:23] LABS: Potassium 6.6 mmol/L (3.5-5.0)
[2023-01-21] MEDS ORDERED: Furosemide 20 mg/2 ml IV VIAL IV ONE (13:03)
[2023-01-21] MEDS: Enoxaparin 40 MG/0.4 ML SYR SUBCUT SCH (15:40)
[2023-01-21] MEDS ORDERED: Dextrose 50% Syringe 50 ml 25 GM/50 ML SYRINGE IV PUSH PRN (16:15)
[2023-01-21] MEDS: Lactulose 30 ml UDC PO SCH ×2 (17:05→20:25)
[2023-01-21 17:25] LABS: Calcium 9.5 mg/dL (8.6-10.3); Creatinine, Serum 1.39 mg/dL (0.51-0.95); Potassium 5.7 mmol/L (3.5-5.0); eGFR CKD-EPI 42.9 (>60)
[2023-01-21] MEDS ORDERED: SODIUM ZIRCONIUM CYCLOSILICATE 10 GM PACKET PO ONE (18:46)
[2023-01-21] MEDS ORDERED: NS 0.9% 500 ml BAG 500 ML IV ONE (20:20)
[2023-01-21] MEDS ORDERED: Insulin GLARGINE 100 un/ml 10 ml VIAL SUBCUT SCH (21:00)
[2023-01-22 03:37] VITALS: BP 95/47
[2023-01-22 04:58] LABS: ABS Eosinophils 0.2 10^3/uL (0.0-0.5); ABS Lymphocytes 0.4 10^3/uL (1.0-4.8); ABS Monocytes 0.6 10^3/uL (0.0-0.9); ABS Neutrophils 1.6 10^3/uL (1.5-7.6); Eosinophil % 5.7 %; Hematocrit 32.3 % (35-45); Hemoglobin 11.3 g/dL (11.5-14.3); Lymphocyte % 15.3 %; Mean Corpuscular Hemoglobin 34.7 pg (27-33); Mean Corpuscular Hgb Conc 35.1 g/dL (31-36); Mean Corpuscular Volume 98.8 fL (80-97); Nucleated Red Blood Cells % 0.2 /100 WBC (0.0-0.4); Platelet Count 53 10^3/uL (150-450); Red Blood Count 3.27 10^6/uL (3.63-4.92); White Blood Count 2.8 10^3/uL (3.8-11.8)
[2023-01-22 05:11] LABS: Creatinine, Serum 1.35 mg/dL (0.51-0.95); Magnesium 1.9 mg/dL (1.9-2.7); Potassium 4.9 mmol/L (3.5-5.0); eGFR CKD-EPI 44.4 (>60)
[2023-01-22] MEDS: Lactulose 30 ml UDC PO SCH ×2 (08:04→13:35)
[2023-01-22] MEDS ORDERED: Polyethylene Glycol 3350 17 GM PACKET PO SCH (09:00)
[2023-01-22] MEDS ORDERED: VITAMIN E 200 UNIT PO SCH ×2 (09:00)
[2023-01-22] MEDS: Enoxaparin 40 MG/0.4 ML SYR SUBCUT SCH (13:27)
== END 2023-01-22 15:21 | disposition home or self-care (01) | DRG 425 ==
LOC: ED 07:19 → EDHOLD 13:40 → ICU 13:59
PROVIDERS: ADMIT Internal Medicine; ATTEND Internal Medicine

== ENCOUNTER 2023-01-28 20:05 | Inpatient (IN) ==
[2023-01-28 21:21] LABS: ABS Eosinophils 0.3 10^3/uL (0.0-0.5); ABS Lymphocytes 0.6 10^3/uL (1.0-4.8); ABS Neutrophils 4.7 10^3/uL (1.5-7.6); ABS Nucleated RBC 0.01 10^3/ul; Eosinophil % 4.3 %; Hemoglobin 13.4 g/dL (11.5-14.3); Lymphocyte % 9.2 %; Mean Corpuscular Hemoglobin 34.3 pg (27-33); Mean Corpuscular Hgb Conc 35.2 g/dL (31-36); Mean Corpuscular Volume 97.5 fL (80-97); Nucleated Red Blood Cells % 0.1 /100 WBC (0.0-0.4); Platelet Count 98 10^3/uL (150-450); Red Cell Distribution Width 15.8 % (12-17); White Blood Count 6.6 10^3/uL (3.8-11.8)
[2023-01-28 21:25] LABS: INR 1.66 (0.88-1.18)
[2023-01-28 21:36] LABS: Albumin 3.4 g/dL (3.2-5.2); Albumin/Globulin Ratio 1.3 (1-3); C Reactive Protein 5.46 mg/L (<8.01); Calcium 9.6 mg/dL (8.6-10.3); Creatinine, Serum 1.54 mg/dL (0.51-0.95); Globulin 2.7 g/dL (2-4); Magnesium 2.1 mg/dL (1.9-2.7); Total Bilirubin 2.1 mg/dL (0.2-1.0); Total Protein 6.1 g/dL (6.4-8.9); eGFR CKD-EPI 37.9 (>60)
[2023-01-28] MEDS ORDERED: Iodixanol (CONTRAST) 320 MG/ML 100 ML SDV IV ONE (21:40)
[2023-01-28 21:47] LABS: Potassium 6.4 mmol/L (3.5-5.0)
[2023-01-28] MEDS ORDERED: CALCIUM GLUCONATE 1GM/50ML NS 1 GM/50 ML BAG IV ONE (21:54)
[2023-01-28] MEDS ORDERED: SODIUM ZIRCONIUM CYCLOSILICATE 10 GM PACKET PO ONE (21:54)
[2023-01-28] MEDS ORDERED: Dextrose 50% Syringe 50 ml 25 GM/50 ML SYRINGE IV PUSH ONE (21:54)
[2023-01-28] MEDS ORDERED: Furosemide 40 mg/4 ml IV VIAL IV ONE (21:55)
[2023-01-28] MEDS ORDERED: Enoxaparin 40 MG/0.4 ML SYR SUBCUT SCH (23:00)
[2023-01-28] MEDS: Lactulose 30 ml UDC PO SCH (23:02)
[2023-01-28] MEDS ORDERED: Dextrose 50% Syringe 50 ml 25 GM/50 ML SYRINGE IV PUSH PRN (23:27)
[2023-01-28] MEDS: Ciprofloxacin 400mg IVPREMIX 400 MG/200 ML BAG IVPB SCH (23:48)
[2023-01-29 00:23] LABS: Calcium 7.2 mg/dL (8.6-10.3); Creatinine, Serum 1.13 mg/dL (0.51-0.95); Potassium 4.4 mmol/L (3.5-5.0)
[2023-01-29] MEDS ORDERED: Furosemide 40 mg/4 ml IV VIAL IV ONE (00:49)
[2023-01-29 01:37] LABS: Urine Appearance Cloudy; Urine Bilirubin Negative (Negative); Urine Blood Negative (Negative); Urine Color Yellow; Urine Glucose 2+(150 mg/dL) (Negative); Urine Ketones Negative (Negative); Urine Nitrite Negative (Negative); Urine Protein Negative (Negative); Urine Specific Gravity 1.038 (1.002-1.030); Urine Urobilinogen Negative (Negative)
[2023-01-29 04:21] LABS: Calcium 7.7 mg/dL (8.6-10.3); Creatinine, Serum 1.19 mg/dL (0.51-0.95); eGFR CKD-EPI 51.7 (>60)
[2023-01-29 04:32] LABS: Potassium 4.2 mmol/L (3.5-5.0)
[2023-01-29] MEDS: Lactulose 30 ml UDC PO SCH ×3 (09:41→21:55)
[2023-01-29] MEDS: Polyethylene Glycol 3350 17 GM PACKET PO SCH (09:44)
[2023-01-29 10:00] LABS: Blood Urea Nitrogen 45 mg/dL (6-24); CO2 Carbon Dioxide 17 mmol/L (22-32); Calcium 8.3 mg/dL (8.6-10.3); Chloride 93 mmol/L (101-111); Creatinine, Serum 1.22 mg/dL (0.51-0.95); Glucose 141 mg/dL (70-100); eGFR CKD-EPI 50.2 (>60)
[2023-01-29 10:06] LABS: Sodium 116 mmol/L (135-145)
[2023-01-29 10:08] LABS: Anion Gap 6 mmol/L (2-16)
[2023-01-29] MEDS: Ciprofloxacin 400mg IVPREMIX 400 MG/200 ML BAG IVPB SCH (11:28)
[2023-01-29 13:00] LABS: Calcium 9.6 mg/dL (8.6-10.3); Creatinine, Serum 1.44 mg/dL (0.51-0.95); Potassium 4.8 mmol/L (3.5-5.0); eGFR CKD-EPI 41.1 (>60)
[2023-01-29] MEDS ORDERED: Morphine 2 MG/ML SYRINGE IV ONE (15:41)
[2023-01-29 21:23] LABS: Calcium 9.2 mg/dL (8.6-10.3); Creatinine, Serum 1.24 mg/dL (0.51-0.95); Potassium 4.7 mmol/L (3.5-5.0); eGFR CKD-EPI 49.2 (>60)
[2023-01-29] MEDS: Enoxaparin 40 MG/0.4 ML SYR SUBCUT SCH (21:31)
[2023-01-30] MEDS: Ciprofloxacin 400mg IVPREMIX 400 MG/200 ML BAG IVPB SCH ×3 (00:43→23:15)
[2023-01-30 05:48] LABS: ABS Eosinophils 0.2 10^3/uL (0.0-0.5); ABS Lymphocytes 0.4 10^3/uL (1.0-4.8); ABS Monocytes 0.7 10^3/uL (0.0-0.9); ABS Neutrophils 2.6 10^3/uL (1.5-7.6); ABS Nucleated RBC 0.01 10^3/ul; Hematocrit 34.2 % (35-45); Hemoglobin 12.2 g/dL (11.5-14.3); Lymphocyte % 11.2 %; Mean Corpuscular Hemoglobin 33.7 pg (27-33); Mean Corpuscular Hgb Conc 35.7 g/dL (31-36); Mean Corpuscular Volume 94.4 fL (80-97); Mean Platelet Volume 8.2 fL (7.5-11.2); Nucleated Red Blood Cells % 0.3 /100 WBC (0.0-0.4); Platelet Count 64 10^3/uL (150-450); Red Blood Count 3.62 10^6/uL (3.63-4.92); Red Cell Distribution Width 15.4 % (12-17)
[2023-01-30 06:03] LABS: Calcium 9.3 mg/dL (8.6-10.3); Creatinine, Serum 1.21 mg/dL (0.51-0.95); Magnesium 1.8 mg/dL (1.9-2.7); Potassium 4.9 mmol/L (3.5-5.0); eGFR CKD-EPI 50.7 (>60)
[2023-01-30] MEDS: Lactulose 30 ml UDC PO SCH ×4 (09:05→20:31)
[2023-01-30] MEDS: Polyethylene Glycol 3350 17 GM PACKET PO SCH (09:06)
[2023-01-30] MEDS ORDERED: Magnesium Sulfate IV 1GM/100ML 1 GM/100 ML BAG IV ONE (09:28)
[2023-01-30] MEDS: Enoxaparin 40 MG/0.4 ML SYR SUBCUT SCH (20:15)
[2023-01-31 04:55] LABS: Creatinine, Serum 1.19 mg/dL (0.51-0.95); Potassium 4.7 mmol/L (3.5-5.0); eGFR CKD-EPI 51.7 (>60)
[2023-01-31] MEDS: Lactulose 30 ml UDC PO SCH ×4 (09:09→20:09)
[2023-01-31] MEDS: Polyethylene Glycol 3350 17 GM PACKET PO SCH (09:09)
[2023-01-31] MEDS: Ciprofloxacin 400mg IVPREMIX 400 MG/200 ML BAG IVPB SCH (11:25)
[2023-01-31] MEDS: Enoxaparin 40 MG/0.4 ML SYR SUBCUT SCH (20:06)
[2023-02-01 05:43] LABS: Calcium 8.9 mg/dL (8.6-10.3); Creatinine, Serum 1.27 mg/dL (0.51-0.95); Potassium 5.5 mmol/L (3.5-5.0); eGFR CKD-EPI 47.8 (>60)
[2023-02-01] MEDS: Polyethylene Glycol 3350 17 GM PACKET PO SCH (08:52)
[2023-02-01] MEDS: Lactulose 30 ml UDC PO SCH ×3 (09:14→20:13)
[2023-02-01] MEDS: Enoxaparin 40 MG/0.4 ML SYR SUBCUT SCH (20:13)
[2023-02-02 05:43] LABS: Calcium 8.9 mg/dL (8.6-10.3); Creatinine, Serum 1.35 mg/dL (0.51-0.95); eGFR CKD-EPI 44.4 (>60)
[2023-02-02 05:58] LABS: Potassium 6.2 mmol/L (3.5-5.0)
[2023-02-02 06:06] LABS: ABS Basophils 0.1 10^3/uL (0.0-0.1); ABS Eosinophils 0.2 10^3/uL (0.0-0.5); ABS Lymphocytes 0.8 10^3/uL (1.0-4.8); Eosinophil % 4.4 %; Hematocrit 35.8 % (35-45); Hemoglobin 12.7 g/dL (11.5-14.3); Lymphocyte % 15.3 %; Mean Corpuscular Hemoglobin 34.1 pg (27-33); Mean Corpuscular Hgb Conc 35.4 g/dL (31-36); Mean Corpuscular Volume 96.4 fL (80-97); Mean Platelet Volume 9.6 fL (7.5-11.2); Nucleated Red Blood Cells % 0.1 /100 WBC (0.0-0.4); Platelet Count 86 10^3/uL (150-450); Red Blood Count 3.71 10^6/uL (3.63-4.92)
[2023-02-02] MEDS: SODIUM ZIRCONIUM CYCLOSILICATE 10 GM PACKET PO SCH (06:51)
[2023-02-02] MEDS: Polyethylene Glycol 3350 17 GM PACKET PO SCH (09:10)
[2023-02-02] MEDS: Lactulose 30 ml UDC PO SCH ×3 (09:39→20:37)
[2023-02-02] MEDS ORDERED: SODIUM ZIRCONIUM CYCLOSILICATE 10 GM PACKET PO ONE (10:18)
[2023-02-02 14:19] LABS: Blood Urea Nitrogen 47 mg/dL (6-24); CO2 Carbon Dioxide 18 mmol/L (22-32); Chloride 92 mmol/L (101-111); Creatinine, Serum 1.34 mg/dL (0.51-0.95); Glucose 231 mg/dL (70-100); eGFR CKD-EPI 44.8 (>60)
[2023-02-02 14:23] LABS: Anion Gap 7 mmol/L (2-16); Sodium 117 mmol/L (135-145)
[2023-02-02] MEDS: Enoxaparin 40 MG/0.4 ML SYR SUBCUT SCH (20:37)
[2023-02-03 06:01] LABS: CO2 Carbon Dioxide 16 mmol/L (22-32); Calcium 8.9 mg/dL (8.6-10.3); Chloride 91 mmol/L (101-111)
[2023-02-03 06:03] LABS: Anion Gap 9 mmol/L (2-16); Sodium 116 mmol/L (135-145)
[2023-02-03 06:07] LABS: Blood Urea Nitrogen 47 mg/dL (6-24); Creatinine, Serum 1.25 mg/dL (0.51-0.95); Glucose 148 mg/dL (70-100); eGFR CKD-EPI 48.7 (>60)
[2023-02-03] MEDS: Polyethylene Glycol 3350 17 GM PACKET PO SCH (08:21)
[2023-02-03] MEDS: Lactulose 30 ml UDC PO SCH (08:21)
[2023-02-03] MEDS: SODIUM ZIRCONIUM CYCLOSILICATE 10 GM PACKET PO SCH (09:05)
[2023-02-03 10:30] VITALS: BP 109/61
== END 2023-02-03 11:25 | disposition home health service (06) ==
LOC: ED 20:05 → SUATTDRO 22:25 → EDHOLD 22:25 → ICU 01-29 14:19
PROVIDERS: ADMIT Internal Medicine; ATTEND Internal Medicine Critical Care Medicine